=== PATIENT | male | born 1955 | race Caucasian/White ===

== ENCOUNTER 2021-06-06 10:59 | Outpatient (CLI) | payer MEDICARE, OTHER ==
[~2021-06-06] VITALS: Ht 188 cm; Wt 134.7 kg
[2021-06-06] VITALS (7 sets, daily range): BP systolic 123–159; BP diastolic 72–88; PULSE 73–84; TEMP 98.5
--- NOTE | 2021-06-06 15:15 | NUR ---
Pt tolerated magnesium infusion well and without incident; PIV discontinued; pt verbalized comfort in discharging home; pt discharged to private vehicle at 1515.
[2021-06-06] MEDS ORDERED: DULCOLAX STOOL100 MG PO (17:21)
[2021-06-06] MEDS ORDERED: VITAMIN D 400400 IU PO (17:23)
[2021-06-06] MEDS ORDERED: PRILOSEC 20MG20 MG PO (17:24)
[2021-06-06] MEDS ORDERED: VITAMIN D31000 IU PO (17:24)
[2021-06-06] MEDS ORDERED: LIPITOR 40MG TA40 MG PO (17:25)
[2021-06-06] MEDS ORDERED: TIAZAC300 MG PO (17:26)
[2021-06-06] MEDS ORDERED: PRINIVIL40 MG PO (17:26)
[2021-06-06] MEDS ORDERED: JANUMET 500 MG-1 TA1 PO (17:27)
[2021-06-06] MEDS ORDERED: NEURONTIN300 MG/CAP PO (17:28)
[2021-06-06] MEDS ORDERED: CLARITIN 1010 MG/TAB PO (17:29)
[2021-06-06] MEDS ORDERED: EPA FISH OIL1 SGL PO (17:29)
[2021-06-06] MEDS ORDERED: MAG-OX 400400 MG/TAB PO (17:30)
[2021-06-06] MEDS ORDERED: LASIX 40MG TABL40 MG PO (17:30)
== END 2021-06-06 15:15 | disposition home or self-care (01) ==
LOC: EUO 10:59
DX: E83.42 Hypomagnesemia (principal)
CPT/HCPCS: J3475